=== PATIENT | male | born 1990 | race Native Hawaiian/Other Pacific Islander ===

== ENCOUNTER 2016-11-01 04:53 | Emergency (ER) | payer OTHER ==
[~2016-11-01] VITALS: Ht 175.3 cm; Wt 68.0 kg
[2016-11-01 05:00] VITALS: TEMP 98.8
[2016-11-01 06:15] VITALS: BP 118/70
[2016-11-01] MEDS ORDERED: VENLAFAXINE150 M1 PO (14:43)
[2016-11-01] MEDS ORDERED: DIPH50CA30 PO (14:44)
[2016-11-01] MEDS ORDERED: SEROQUEL200 MG OR (14:44)
== END 2016-11-01 06:15 ==
LOC: ED 04:53
PROC: 0HQCXZZ Repair Left Upper Arm Skin, External Approach (ICD-10-PCS; principal; 2016-11-01)
PROC: 0HCCXZZ Extirpation of Matter from Left Upper Arm Skin, External Approach (ICD-10-PCS; 2016-11-01)
DX: S41.122A Laceration with foreign body of left upper arm, initial encounter (principal); X79.XXXA Intentional self-harm by blunt object, initial encounter; Y92.149 Unspecified place in prison as the place of occurrence of the external cause
CPT/HCPCS: 96372; 99283; J0696; J2060

== ENCOUNTER 2016-11-01 10:34 | Outpatient (CLI) | payer OTHER ==
[2016-11-01] MEDS ORDERED: VENLAFAXINE150 M1 PO (14:43)
[2016-11-01] MEDS ORDERED: DIPH50CA30 PO (14:44)
[2016-11-01] MEDS ORDERED: SEROQUEL200 MG OR (14:44)
== END 2016-11-01 10:41 | disposition short-term general hospital (02) ==
LOC: AMB 10:34
DX: S61.512A Laceration without foreign body of left wrist, initial encounter (principal); X78.8XXA Intentional self-harm by other sharp object, initial encounter; Y92.143 Cell of prison as the place of occurrence of the external cause
CPT/HCPCS: A0425; A0427

== ENCOUNTER 2016-11-01 10:41 | Observation (INO) | payer OTHER ==
[2016-11-01] VITALS (20 sets, daily range): BP systolic 114–143; BP diastolic 61–79; TEMP 98.2–100.1; Ht 172.7 cm; Wt 72.6 kg
[~2016-11-01] VITALS: Ht 172.7 cm; Wt 72.6 kg
[2016-11-01 11:32] LABS: POTASSIUM 3.8 mmol/L (3.6-5.2); SODIUM 140 mmol/L (136-145)
[2016-11-01 11:35] LABS: PLATELET COUNT 250 K/uL (142-355)
[2016-11-01] MEDS ORDERED: VENLAFAXINE150 M1 PO (14:43)
[2016-11-01] MEDS ORDERED: DIPH50CA30 PO (14:44)
[2016-11-01] MEDS ORDERED: SEROQUEL200 MG OR (14:44)
[2016-11-02] VITALS (21 sets, daily range): BP systolic 103–168; BP diastolic 45–93; TEMP 98–99.9
[2016-11-02 08:08] LABS: PLATELET COUNT 274 K/uL (142-355)
[2016-11-02 08:21] LABS: POTASSIUM 4.2 mmol/L (3.6-5.2); SODIUM 140 mmol/L (136-145)
[2016-11-03] VITALS (18 sets, daily range): BP systolic 99–143; BP diastolic 50–82; TEMP 97.8–100.1
[2016-11-03 06:28] LABS: POTASSIUM 3.6 mmol/L (3.6-5.2); SODIUM 142 mmol/L (136-145)
[2016-11-03 06:32] LABS: PLATELET COUNT 257 K/uL (142-355)
[2016-11-04] VITALS (10 sets, daily range): BP systolic 110–155; BP diastolic 59–75; TEMP 98.6–99.1
[2016-11-04 06:52] LABS: PLATELET COUNT 195 K/uL (142-355)
[2016-11-04 07:55] LABS: POTASSIUM 3.5 mmol/L (3.6-5.2); SODIUM 142 mmol/L (136-145)
== END 2016-11-04 13:20 ==
LOC: ED 10:41 → ICU 11:50
PROVIDERS: Internal Medicine
PROC: 30233N1 Transfusion of Nonautologous Red Blood Cells into Peripheral Vein, Percutaneous Approach (ICD-10-PCS; principal; 2016-11-01)
PROC: 0HQEXZZ Repair Left Lower Arm Skin, External Approach (ICD-10-PCS; 2016-11-01)
PROC: 30233N1 Transfusion of Nonautologous Red Blood Cells into Peripheral Vein, Percutaneous Approach (ICD-10-PCS; 2016-11-03)
DX: D62 Acute posthemorrhagic anemia (principal); S61.512A Laceration without foreign body of left wrist, initial encounter; X78.8XXA Intentional self-harm by other sharp object, initial encounter; Y93.89 Activity, other specified; Y92.143 Cell of prison as the place of occurrence of the external cause; Y99.8 Other external cause status; F25.1 Schizoaffective disorder, depressive type; F60.2 Antisocial personality disorder; B19.20 Unspecified viral hepatitis C without hepatic coma; B19.10 Unspecified viral hepatitis B without hepatic coma; L03.114 Cellulitis of left upper limb
CPT/HCPCS: 36415; 36430; 80053; 80202; 80307; 80320; 80329; 81000; 82728; 82962; 83540; 83550; 83735; 85007; 85027; 86850; 86900; 86901; 86922; 87040; 87070; 87077; 87185; 87186; 87205; 99220; 99285; G0378; G0479; J3370; J7040; P9016